=== PATIENT | female | born 1960 ===

== ENCOUNTER 2018-07-25 08:07 | Day surgery (SDC) | payer BC ==
[2018-07-25] MEDS ORDERED: ECOTRIN PO ONE (09:00)
[2018-07-25] MEDS ORDERED: NACL 0.9% 500 ML 500 ML IV SCH (09:00)
[2018-07-25 09:13] LABS: BUN/Creatinine Ratio 14; Blood Urea Nitrogen 11 mg/dL (7-17); Calcium 8.6 mg/dL (8.4-10.2); Hemolysis Index 6
[2018-07-25] MEDS ORDERED: K-DUR PO ONE (10:00)
[2018-07-25] MEDS ORDERED: HEPARIN/NS 5000 UNIT/500ML(CATH LAB) 1,000 ML IR ONE (10:07)
[2018-07-25] MEDS ORDERED: HEPARIN 10,000 UNITS/10 ML ONE (10:07)
[2018-07-25] MEDS ORDERED: CALAN ONE (10:07)
[2018-07-25] MEDS ORDERED: NITROGLYCERIN SYRINGE 0 ML ONE (10:07)
[2018-07-25] MEDS ORDERED: XYLOCAINE 2% INFILTRATI ONE (10:07)
[2018-07-25] MEDS ORDERED: VERSED ONE (10:08)
[2018-07-25] MEDS ORDERED: SUBLIMAZE ONE (10:08)
--- NOTE | 2018-07-25 11:19 | Cardiac Catherization Report ---
CARDIAC CATHETERIZATION REPORT INDICATION FOR PROCEDURE: A 58-year-old -[place] female with history of atypical chest pains, history of hypertension, having recurrent chest pain and stress test done in the past in 12/2017 was unremarkable. Because of persistent chest pain, she is scheduled for cardiac catheterization for definitive diagnosis and treatment. The patient is aware of the procedure, potential complications and alternatives of therapy available. DESCRIPTION OF PROCEDURE: The patient was brought to the catheterization laboratory in a fasting condition. The right wrist area and forearm thoroughly cleansed with Betadine solution. Sterile drapes were applied. Local anesthesia was achieved using 2% Xylocaine. The patient was evaluated for moderate sedation and it was felt to be appropriate candidate for moderate sedation. She was sedated with IV Versed and fentanyl starting at 10:37 a.m. The patient was continuously monitored with pulse oximetry, EKG and hemodynamic monitoring. Subsequently, right radial artery puncture was made using 21-gauge arterial puncture needle after local anesthesia. A 5-Tajik sheath was introduced. The patient received 3000 units of intravenous heparin and 5 mg of intra-arterial verapamil. Subsequently, 5-Tajik multipurpose catheter was used to obtain the angiograms of the left coronary in multiple views and left ventriculogram done in ROBERSON projection followed by changing the catheter to JR4 catheter and obtained the angiograms of the right coronary artery in multiple views. At the end of the procedure, catheter and sheath were removed and good hemostasis was achieved with radial band. No untoward complications were noted. The patient was monitored for any side effects from sedation from 10:37 a.m. to 10:50 a.m. The patient at the end of the procedure is communicating normally, breathing normally and able to move all the extremities. The patient was transferred to the room in stable condition. Following findings were noted. HEMODYNAMICS: 1. Opening aortic pressure 136/64, left ventricular pressure 138/27. No gradient across the aortic valve. Estimated ejection fraction 65%. 2. Left ventriculogram done in ROBERSON projection showed normal size left ventricle with normal contractility. End-diastolic and systolic volumes are normal. Mitral regurgitation could not be evaluated because of limited amount of dye injected. 3. Right coronary artery arises normally from right coronary cusp, angiographically smooth and normal. 4. Left coronary artery arises normally from left coronary cusp. Left main, LAD, which curves around the apex and its branches, circumflex artery and its branch appeared to be angiographically smooth and normal. FINAL IMPRESSION: 1. Normal sized left ventricle with normal contractility with mildly elevated end diastolic pressure. 2. Normal coronary anatomy. 3. Right radial artery was used for access. No untoward complications were noted. The patient tolerated the moderate sedation well. Findings were explained to the patient. The patient will be continued on risk factor modification. Etiology of her chest pains is not clear. [facility]# [id number] ANALIA/NTS
[2018-07-25 14:06] VITALS: BP 150/65
--- NOTE | 2018-07-25 15:46 | Short Stay Summary ---
Short Stay Documentation Date of service: 07/25/18 - History H&P: obtained from office - Allergies and Medications Current Medications: Allergies codeine Allergy (Verified 07/25/18 09:43) Itching lisinopril [From Prinivil] Allergy (Verified 07/25/18 09:43) COUGHING Home Medications Medication Instructions Recorded Confirmed Last Taken Type Atenolol [Tenormin] 100 mg PO DAILY 07/25/18 07/25/18 07/24/18 History 100mg Cetirizine HCl [Zyrtec 10mg tab] 10 mg PO PRN PRN 07/25/18 07/25/18 07/17/18 History 10mg Potassium Chloride [K-Dur] 20 meq PO BID 07/25/18 07/25/18 07/24/18 History 20meq Ranitidine HCl [Zantac] 2 tab PO HS 07/25/18 07/25/18 07/24/18 History 2 tab Rosuvastatin Calcium [Crestor] 10 mg PO DAILY 07/25/18 07/25/18 07/24/18 History 10mg Spironolactone [Aldactone] 25 mg PO DAILY 07/25/18 07/25/18 07/24/18 History 25mg amLODIPine [Norvasc] 10 mg PO DAILY 07/25/18 07/25/18 07/24/18 History 10mg - Brief post op/procedure progress note Date of procedure: 07/25/18 Pre-op diagnosis: chest pain Post-op diagnosis: same Procedure: LHC - see dictated cath report Anesthesia: local Estimated blood loss: none Condition: stable - Disposition Condition at discharge: Good Disposition: DC-[id number] TO HOME OR SELFCARE - Discharge Diagnoses (1) HTN (hypertension) Status: Chronic (2) Normal coronary arteries Status: Chronic Short Stay Discharge Plan Activity: advance as tolerated Wound: open to air, keep clean and dry, per your surgeon's advice Follow up with: PARTH ROSS DO [Primary Care Provider] - 7 Days Forms: CardCath PCI D/C Instructions
== END 2018-07-25 14:35 | disposition home or self-care (01) ==
LOC: CATHLABREC 08:07 → CATH 08:07 → CATHLABREC 14:35
PROVIDERS: ATTEND Internal Medicine
DX: R07.89 Other chest pain (principal); I10 Essential (primary) hypertension; E78.00 Pure hypercholesterolemia, unspecified; K21.9 Gastro-esophageal reflux disease without esophagitis; Z83.3 Family history of diabetes mellitus; Z88.5 Allergy status to narcotic agent; Z79.899 Other long term (current) drug therapy; Z82.49 Family history of ischemic heart disease and other diseases of the circulatory system; Z82.69 Family history of other diseases of the musculoskeletal system and connective tissue; Z88.8 Allergy status to other drugs, medicaments and biological substances; Z98.49 Cataract extraction status, unspecified eye
CPT/HCPCS: 36415; 80048; 93005; 93010; 93458; 99156; C1894; J1644; J2250; J3010; J7040; Q9967